=== PATIENT | female | born 1990 | race Hispanic/Latino ===

== ENCOUNTER 2024-12-12 20:55 | Emergency (ER) | payer SELFPAY ==
[~2024-12-12] VITALS: Ht 142.2 cm; Wt 49.9 kg
[2024-12-12 20:57] VITALS: RESP 16
[2024-12-12] MEDS: ONDANSETRON HCL INJ 2MG/ML 2ML 2 MG/ML VIAL IV STA ×2 (21:17→21:26)
[2024-12-12 21:26] LABS: BASOPHILS % 0.6 % (0.0-1.0); EOSINOPHILS % 4.0 % (0.0-6.0); LYMPHOCYTES % 37.5 % (18.0-39.1); MONOCYTES % 8.7 % (4.4-11.3); NEUTROPHILS % 48.5 % (38.7-80.0); RED CELL DISTRIBUTION WIDTH 12.0 % (11.7-14.4)
[2024-12-12] MEDS: SODIUM CHLORIDE 0.9% 1000ML 1,000 ML IV STA (21:26)
[2024-12-12] MEDS: KETOROLAC TROMETHAMINE 30 MG/ML VIAL IV STA (21:30)
[2024-12-12 21:37] LABS: LEUKOCYTE ESTERASE ,URINE NEGATIVE (NEGATIVE); PROTEIN,URINE DIPSTICK NEGATIVE (NEGATIVE); URINE UROBILINOGEN 0.2 mg/dL (0.2 - 1)
[2024-12-12 21:39] LABS: PREGNANCY TEST, URINE NEGATIVE (NEGATIVE)
[2024-12-12] MEDS ORDERED: IOPAMIDOL 370 MG/ML 100 ML INFUS..BTL INJ ONE (21:53)
[2024-12-12 22:07] LABS: EPITHELIAL CELLS,URINE FEW /LPF; WBC,URINE (MAN) 0-5 /HPF (0-5)
[2024-12-12 22:21] LABS: EST GLOMERULAR FILTRATION RATE 114.0 ML/MIN (>=60)
[2024-12-13] MEDS ORDERED: KETOROLAC TROME10 MG PO (00:04)
[2024-12-13] MEDS ORDERED: DOXYCYCLINE HY100 MG PO (00:04)
[2024-12-13] MEDS ORDERED: PEPCID20 MG PO (00:11)
[2024-12-13 00:15] VITALS: PULSE 77; TEMP 98.2
[2024-12-13 00:25] VITALS: BP 99/66; PULSE 77; TEMP 98.2; O2SAT 100
== END 2024-12-13 00:27 | disposition home or self-care (01) ==
LOC: ER 21:03
DX: R10.32 Left lower quadrant pain (principal); R11.2 Nausea with vomiting, unspecified; R19.7 Diarrhea, unspecified; K76.0 Fatty (change of) liver, not elsewhere classified
CPT/HCPCS: 36415; 74177; 80053; 81001; 81025; 83690; 85025; 99284; J1885; J2405; J7030; Q9967